=== PATIENT | male | born 1965 | race Caucasian/White ===

== ENCOUNTER 2016-11-16 10:32 | Emergency (ER) | payer OTHER ==
[2016-11-16 12:08] VITALS: BP 141/96; PULSE 86; RESP 18; TEMP 100.4; O2SAT 98
--- NOTE | 2016-11-16 13:03 | UCPHY ---
[id number] 4d 11/16/16 12:39 HPI/ROS: CHIEF COMPLAINT: URI symptoms x7 days HISTORY OF PRESENT ILLNESS: 51-year-old immunocompetent male complaining of 7 days of sore throat, cough, congestion. No nuchal rigidity. No chest pain. No back pain. No abdominal pain. No dyspnea. No urinary complaints. No abdominal pain. No influenza vaccination REVIEW OF SYSTEMS: A ten point review of systems was performed and is negative with the exception of the items mentioned in the HPI PAST MEDICAL & SURGICAL HISTORY: No pertinent medical or surgical history SOCIAL HISTORY:nonsmoker PHYSICAL EXAM (Prior to examination, patient consented to physical exam, hands were washed and my usual and customary physical exam procedures followed) 1) GENERAL: Well-developed, well-nourished, alert and oriented. Appears to be in no acute distress. 2) HEAD: Normocephalic, atraumatic 3) HEENT: Pupils equal, round, reactive to light bilaterally. Sclera anicteric. Nasopharynx, oropharynx, clear, no lesions. No tonsillar enlargement or exudate. 4) NECK: Full range of motion, no meningeal signs. 5) LUNGS: Clear auscultation bilaterally, no wheezes, no rhonchi, no retractions. 6) HEART: Regular rate and rhythm, no murmur, no heave, no gallop. 7) ABDOMEN: No guarding, no rebound, no focal tenderness, 8) MUSCULOSKELETAL: No peripheral edema or discoloration. 9) BACK: No CVA tenderness. 10) SKIN: No rash, no petechiae. DIFFERENTIAL DIAGNOSIS: In no particular include but limited to bronchitis, pneumonia, sepsis, influenza (Geronimo,Matthew Shruti) Constitutional: Initial Vital Signs Temperature (C) 38.0 C 11/16/16 12:05 Heart Rate 86 11/16/16 12:05 Respiratory Rate 18 11/16/16 12:05 Blood Pressure 141/96 H 11/16/16 12:05 O2 Sat (%) 98 11/16/16 12:05 O2 Delivery Mode Room Air Allergies/Adverse Reactions: erythromycin base [Erythromycin Base] Allergy (Unknown, Verified 11/16/16 12:04) Unknown Home Medications: Medication Instructions Recorded Multivitamin 06/02/16 Omeprazole 06/02/16 VITAMIN D 06/02/16 Vitamin B Complex 06/02/16 Vitamin C 06/02/16 AZITHROMYCIN [Z-PACK] 500 mg PO DAILY #1 packet 11/16/16 MDM/Departure - [facility] ED Course/Re-evaluation: Urgent Care PA supervision Physician documentation: The patient was evaluated and managed by the physician assistant pressman. My co- signature indicates that I have reviewed this chart and I agree with the findings and plan of care as documented. I am the secondary supervising physician. (Rubén Wheatley) - Depart Disposition: Home, Routine, Self-Care Clinical Impression: Upper respiratory infection Qualifiers: URI type: unspecified URI Qualifier Code: (J06.9) Acute upper respiratory infection, unspecified Condition: Good Instructions: Upper Respiratory Infection (ED) Additional Instructions: Return to the emergency department immediately for change in breathing habits, change in voice, change in swallowing habits, change in mental status, or any other symptoms that concern you. Prescriptions: AZITHROMYCIN [Z-PACK] 500 mg PO DAILY #1 packet Referrals: Dane Giang MD [Medical Doctor] - 2-3 days, call for appt. - PQRS PQRS Measurement: n/a (Matthew Melton)
== END 2016-11-16 13:13 | disposition home or self-care (01) ==
LOC: CED 10:32
DX: J06.9 Acute upper respiratory infection, unspecified (principal)
CPT/HCPCS: 87400-PO; 99214-PO; G0463-PO